=== PATIENT | female | born 1975 | race Caucasian/White ===

== ENCOUNTER 2020-05-29 18:53 | Emergency (ER) | payer BC ==
[~2020-05-29] VITALS: Ht 162.6 cm; Wt 59.0 kg
[2020-05-29] MEDS ORDERED: [UNRECOGNIZED DRUG - OTHER] (19:25)
[2020-05-29] MEDS ORDERED: MOTRIN 800 MG (19:25)
[2020-05-29] MEDS ORDERED: [UNRECOGNIZED DRUG - OTHER] (19:26)
== END 2020-05-29 21:11 | disposition home or self-care (01) ==
LOC: ER 18:53
DX: R10.2 Pelvic and perineal pain (principal); T19.2XXA Foreign body in vulva and vagina, initial encounter; X58.XXXA Exposure to other specified factors, initial encounter; Y93.89 Activity, other specified; Y92.89 Other specified places as the place of occurrence of the external cause; Y99.8 Other external cause status